=== PATIENT | male | born 1975 | race Caucasian/White ===

== ENCOUNTER 2021-12-29 11:33 | Inpatient (IN) | payer MEDICAID ==
[~2021-12-29] VITALS: Ht 172.7 cm; Wt 100.2 kg
[2021-12-29] MEDS ORDERED: VANCOMYCIN 1G PREMIX 200 ML IV SCH (12:00)
[2021-12-29] MEDS ORDERED: ACETAMINOPHEN 325MG TABLET PO ONE (12:00)
[2021-12-29] MEDS ORDERED: IBUPROFEN 400MG TABLET PO ONE (12:00)
[2021-12-29] MEDS ORDERED: CEFTRIAXONE 1 G PREMIX 50 ML IV ONE (12:00)
[2021-12-29 12:24] LABS: BASOPHILS % 0.7 % (0.0-2.0); HEMATOCRIT. 35.7 % (42.0-52.0); HEMOGLOBIN. 11.7 g/dL (14.0-18.0); LYMPHOCYTES % 18.4 % (20.0-50.0); MEAN CORPUSCULAR HEMOGLOBIN 25.6 pg (28.0-32.0); MEAN CORPUSCULAR VOLUME 78.1 fL (80.0-94.0); MEAN PLATELET VOLUME 8.3 fl (7.4-10.4); MONOCYTES % 5.7 % (2.0-8.0); NEUTROPHILS % 74.2 % (40.0-76.0); PLATELET 512 x1000/uL (130-400); RED BLOOD CELL COUNT 4.57 mill/uL (4.7-6.1); RED CELL DISTRIBUTION WIDTH 16.8 % (11.6-14.6)
[2021-12-29 12:29] LABS: CHLORIDE 101 mEq/L (98-107)
[2021-12-29] MEDS ORDERED: VANCOMYCIN 1G PREMIX 200 ML IV NR (13:00)
[2021-12-29] MEDS ORDERED: ACETAMINOPHEN 325MG TABLET PO PRN ×2 (17:45)
[2021-12-29] MEDS ORDERED: ENOXAPARIN 40MG/0.4ML SYR SUBCUT SCH (17:45)
[2021-12-29] MEDS ORDERED: NA PHOS,M-B/NA PHOS,DI-BA ENEMA 118ML PR PRN (17:45)
[2021-12-29] MEDS ORDERED: CLONIDINE 0.1MG TABLET PO PRN (17:45)
[2021-12-29] MEDS ORDERED: MAGNESIUM/ALUMINUM HYDROXIDE/SIMETHICONE 30ML UDC PO PRN (17:45)
[2021-12-29] MEDS ORDERED: ONDANSETRON HCL 4MG/2ML INJ IV PRN (17:45)
[2021-12-29] MEDS ORDERED: GUAIFENESIN 200MG/10ML SUGAR FREE UDC PO PRN (17:45)
[2021-12-29] MEDS ORDERED: IPRATROPIUM/ALBUTEROL 0.5-3(2.5)MG/3ML NEB NEB PRN (17:45)
[2021-12-29] MEDS ORDERED: DOCUSATE SODIUM 100MG CAPSULE PO PRN (17:45)
[2021-12-29] MEDS ORDERED: PIPERACILLIN/TAZ 3.375G PREMIX 50 ML IV SCH (18:00)
[2021-12-29 19:03] LABS: ETHANOL BLOOD < 10 mg/dL; TOTAL IRON BINDING CAPACITY 312 ug/dL (250-450)
[2021-12-29 19:21] LABS: FOLIC ACID (FOLATE) SERUM 8.5 ng/mL (>5.38)
[2021-12-29] MEDS ORDERED: DEXTROSE 50% WATER 50ML SYRINGE IV PRN (19:45)
[2021-12-29 20:37] LABS: *AMPHETAMINES SCREEN URINE PRESUMTIVE POSITIVE (NEGATIVE); *BARBITURATES SCREEN URINE NEGATIVE (NEGATIVE); *BENZODIAZEPINES SCREEN URINE PRESUMTIVE POSITIVE (NEGATIVE); *COCAINE SCREEN URINE NEGATIVE (NEGATIVE); CANNABINOID URINE SCREEN NEGATIVE (NEGATIVE); METHADONE URINE SCREEN NEGATIVE (NEGATIVE); OPIATES URINE SCREEN NEGATIVE (NEGATIVE); PHENCYCLIDINE URINE SCREEN NEGATIVE (NEGATIVE)
[2021-12-29] MEDS: BLOOD SUGAR DIAGNOSTIC STRIP TEST SCH (21:00)
[2021-12-29] MEDS: ENOXAPARIN 30MG/0.3ML SYR SUBCUT SCH (21:57)
[2021-12-29] MEDS: KETOROLAC 15MG/ML VIAL IV PRN (21:58)
[2021-12-29] MEDS: VANCOMYCIN 1G PREMIX 200 ML IV SCH (21:59)
[2021-12-29] MEDS: INSULIN LISPRO 100 UNITS/ML SUBCUT SCH (22:09)
[2021-12-29 22:44] VITALS: BP 139/68
[2021-12-30] MEDS: PIPERACILLIN/TAZOBACTAM 3.375 G in DEXTROSE 5% WATER 50 ML IV SCH ×4 (00:08→22:02)
[2021-12-30] MEDS: BLOOD SUGAR DIAGNOSTIC STRIP TEST SCH ×4 (07:43→21:53)
[2021-12-30] MEDS: INSULIN LISPRO 100 UNITS/ML SUBCUT SCH ×4 (07:43→21:00)
[2021-12-30 08:00] VITALS: BP 149/59
[2021-12-30] MEDS: ENOXAPARIN 30MG/0.3ML SYR SUBCUT SCH ×2 (08:50→22:02)
[2021-12-30] MEDS: VANCOMYCIN 1G PREMIX 200 ML IV SCH ×2 (10:27→20:21)
[2021-12-30 12:19] VITALS: BP 131/77
[2021-12-30 16:00] VITALS: BP 147/77
[2021-12-30] MEDS: KETOROLAC 15MG/ML VIAL IV PRN (17:41)
[2021-12-30 20:00] VITALS: BP 128/62
[2021-12-31] VITALS: BP 121/75
[2021-12-31 04:00] VITALS: BP 126/76
[2021-12-31] MEDS: PIPERACILLIN/TAZOBACTAM 3.375 G in DEXTROSE 5% WATER 50 ML IV SCH ×2 (05:24→13:00)
[2021-12-31] MEDS: BLOOD SUGAR DIAGNOSTIC STRIP TEST SCH ×2 (06:44→12:57)
[2021-12-31] MEDS: INSULIN LISPRO 100 UNITS/ML SUBCUT SCH ×2 (06:44→13:25)
[2021-12-31 08:00] VITALS: BP 122/71
[2021-12-31 09:08] LABS: CHLORIDE 101 mEq/L (98-107)
[2021-12-31] MEDS: VANCOMYCIN 1G PREMIX 200 ML IV SCH (09:52)
[2021-12-31] MEDS ORDERED: SULF1TAB48 MT (11:20)
[2021-12-31] MEDS ORDERED: LEVO500T90 MT (11:20)
[2021-12-31 12:00] VITALS: BP 129/74
[2021-12-31] MEDS: ENOXAPARIN 30MG/0.3ML SYR SUBCUT SCH (12:59)
[2021-12-31] MEDS ORDERED: VANCOMYCIN 1G PREMIX 200 ML IV SCH (18:00)
== END 2021-12-31 15:45 | disposition home or self-care (01) | DRG 720 ==
LOC: ER 12:21 → EDBEDREQ 12:44 → 6EST 15:38 → EDBEDREQTM 15:48 → EDBEDREQ 15:48 → ENRESERV 18:02 → ER 20:06 → CANBEDREQ 20:53
PROVIDERS: ADMIT Internal Medicine; ATTEND Internal Medicine
DX: A41.9 Sepsis, unspecified organism (principal); E44.0 Moderate protein-calorie malnutrition; D63.8 Anemia in other chronic diseases classified elsewhere; E88.09 Other disorders of plasma-protein metabolism, not elsewhere classified; L03.115 Cellulitis of right lower limb; E11.9 Type 2 diabetes mellitus without complications; Z20.822 Contact with and (suspected) exposure to COVID-19; E66.9 Obesity, unspecified; Z68.33 Body mass index [BMI] 33.0-33.9, adult; F19.10 Other psychoactive substance abuse, uncomplicated; F15.10 Other stimulant abuse, uncomplicated; Z71.3 Dietary counseling and surveillance
CPT/HCPCS: 36415; 80048; 80053; 80202; 80305; 80320; 82607; 82746; 82962; 83036; 83540; 83550; 83605; 84145; 84439; 84443; 85025; 87426; 93306; 93971; 97161; 97162; 97165; 97166; 99285; C9803; J0696; J1650; J1815; J1885; J2543; J3370; J7060; G0480

== ENCOUNTER 2022-01-04 22:23 | Emergency (ER) | payer MEDICAID ==
[~2022-01-04] VITALS: Ht 180.3 cm; Wt 103.6 kg
[~2022-01-04 22:23] MED LIST: LEVO500T90 MT; SULF1TAB48 MT
[2022-01-04] MEDS ORDERED: CEPHALEXIN 250MG CAPSULE PO ONE (23:15)
[2022-01-04] MEDS ORDERED: HYDROCODONE/ACETAMINOPHEN 5/325MG TABLET PO ONE (23:15)
[2022-01-04] MEDS ORDERED: SULFAMETHOXAZOLE/TRIMETHOPRIM 400/80MG TAB PO ONE (23:15)
[2022-01-04] MEDS ORDERED: HYDR-4001 MT (23:28)
[2022-01-04] MEDS ORDERED: CEPH500C2 MT (23:28)
[2022-01-04 23:48] VITALS: BP 151/77
== END 2022-01-05 00:30 | disposition home or self-care (01) ==
LOC: ER 22:23
DX: L03.115 Cellulitis of right lower limb (principal)
CPT/HCPCS: 99283